=== PATIENT | male | born 2000 | race Caucasian/White ===

== ENCOUNTER 2022-11-28 15:18 | Emergency (ER) | payer OTHER ==
[~2022-11-28] VITALS: Ht 177.8 cm; Wt 72.6 kg
[~2022-11-28 15:18] MED LIST: BIAXIN250 MG/51 PO; CIPRODEX 0.3%-7.5 ML OT; NKHM
[2022-11-28] MEDS ORDERED: CYCLOBENZAPRINE10 MG PO (17:06)
== END 2022-11-28 17:11 | disposition home or self-care (01) ==
LOC: ED 15:18
DX: S43.401A Unspecified sprain of right shoulder joint, initial encounter (principal); S53.401A Unspecified sprain of right elbow, initial encounter; Z88.0 Allergy status to penicillin; V89.9XXA Person injured in unspecified vehicle accident, initial encounter; Y93.55 Activity, bike riding; Y92.410 Unspecified street and highway as the place of occurrence of the external cause; Y99.8 Other external cause status